=== PATIENT | male | born 1995 | race African-American/Black ===

== ENCOUNTER 2016-03-29 12:50 | Emergency (ER) | payer OTHER ==
[2016-03-29 12:55] VITALS: BP 133/67; PULSE 102; TEMP 98.4; BMI 27.9
--- NOTE | 2016-03-29 13:38 | PDOC ---
History of Present Illness - General Chief Complaint: Cold Symptoms Stated Complaint: DIZZINESS, COLD Time Seen by Provider: 03/29/16 13:17 History Source: Patient Exam Limitations: No Limitations - History of Present Illness Initial Comments: 03/29/16 13:33 CC nasal congesion, cough, body aches x 1 week Timing/Duration: reports: week Severity: reports: mild Possible Cause: No: illness exposure Associated Symptoms: reports: cough, dizziness, earache, fever/chills, headache , nasal congestion, nasal drainage. denies: wheezing Past History - Past Medical History Allergies/Adverse Reactions: Allergies Allergy/AdvReac Type Severity Reaction Status Date / Time Penicillins Allergy Hives Verified 03/29/16 12:55 Home Medications: Ambulatory Orders NK [No Known Home Medication] 03/29/16 Other medical history: NONE - Psycho/Social/Smoking Cessation Hx Anxiety: No Suicidal Ideation: No Smoking History: Never smoked Hx Alcohol Use: Yes (SOCIAL) Drug/Substance Use Hx: No Substance Use Type: None Review of Systems - Review of Systems Constitutional: Yes: Chills, Malaise. No: Fever HEENTM: Yes: Nose Pain, Nose Congestion, Nose Bleeding, Throat Swelling Respiratory: Yes: Cough Cardiac (ROS): Yes: Symptoms Reported ABD/GI: No: Symptoms Reported : No: Symptoms Reported *Physical Exam - Vital Signs Last Vital Signs Temp Pulse Resp BP Pulse Ox 98.4 F 102 H 20 133/67 96 03/29/16 12:52 03/29/16 12:52 03/29/16 12:52 03/29/16 12:52 03/29/16 12:52 - Physical Exam General Appearance: Yes: Appropriately Dressed. No: Apparent Distress HEENT: positive: TM Erythema (on right), Other (post nasal drip; nose= injected bilateral). negative: TM Bulging, TM Dull Neck: positive: Supple. negative: Tender, Rigid, Lymphadenopathy (R), Lymphadenopathy (L) Respiratory/Chest: positive: Lungs Clear, Normal Breath Sounds. negative: Rhonchi, Stridor, Wheezing Cardiovascular: positive: Regular Rhythm, Regular Rate. negative: Murmur Medical Decision Making - Medical Decision Making 03/29/16 13:36 will treat viral sinusitis *DC/Admit/Observation/Transfer Diagnosis at time of Disposition: Sinusitis nasal Qualifiers: Sinusitis location: unspecified location Chronicity: acute Recurrence: non- recurrent Qualified Code(s): J01.90 - Acute sinusitis, unspecified - Discharge Dispostion Disposition: HOME Condition at time of disposition: Stable Admit: No - Referrals Referrals: Zachary Hu MD [Staff Physician] - - Patient Instructions Additional Instructions: lots of fluids; afrin x 3 days only as needed; see dr hu 1 week if no better - Post Discharge Activity Work/School Note: Back to Work, Parent(s) Back to Work Note
== END 2016-03-29 13:48 | disposition home or self-care (01) ==
LOC: JERFT 12:50
DX: J01.90 Acute sinusitis, unspecified (principal)
CPT/HCPCS: 99281-25